=== PATIENT | female | born 1970 | race Caucasian/White ===

== ENCOUNTER 2024-08-29 19:25 | Inpatient (IN) | payer SELFPAY ==
--- OUTSIDE RECORDS SUMMARY | 2024-08-29 19:33 | XMS_ITS | Clinical Summary ---
Author Organization [facility] Address [address] [place] [id number] Care Team Providers Care Precision Grinder External Name Role Phone Unavailable Primary Care Provider Unavailabl e Social History Tobacco Use Types Packs/Day Years Used Date Smoking Tobacco: Never Assessed Comments Unknown Sex and Gender Information Value Date Recorded Sex Assigned at Not on file Legal Sex Female 4:31 PM EDT Gender Identity Not on file Sexual Orientation Not on file Plan of Treatment Not on file
--- OUTSIDE RECORDS SUMMARY | 2024-08-29 19:33 | XMS_ITS | Clinical Summary ---
Author Organization [facility] Address [address] [place] [address] Care Team Providers Care Can Striper Name Role Phone Unavailable Primary Care Provider Unavailabl e Allergies No known active allergies Social History Tobacco Use Types Packs/Day Years Used Date Smoking Tobacco: Never Alcohol Use Standard Drinks/Week Comments No 0 (1 standard drink = 0.6 oz pur e alcohol) Comments No Sex and Gender Information Value Date Recorded Sex Assigned at Not on file Legal Sex Female 6:08 PM EDT Gender Identity Not on file Sexual Orientation Not on file Last Filed Vital Signs Vital Sign Reading Time Taken Comments Blood Pressure 135/59 06/12/2014 10:09 PM EDT Pulse 65 06/12/2014 10:09 PM EDT Temperature 37.6 C (99.6 F) 06/12/2014 6:09 PM EDT Respiratory Rate 16 06/12/2014 10:09 PM EDT Oxygen Saturation 99% 06/12/2014 9:00 PM EDT Inhaled Oxygen Concentration - - Weight 54 kg (119 lb) 06/12/2014 6:09 PM EDT Height 162.6 cm (5' 4 ) 06/12/2014 6:09 PM EDT Body Mass Index 20.43 06/12/2014 6:09 PM EDT Plan of Treatment Not on file Insurance GENERIC OUT OF STATE MEDICAID
[2024-08-29 20:59] VITALS: BP 180/108; PULSE 76; RESP 16; TEMP 37.2; O2SAT 98
[2024-08-29 22:20] VITALS: BMI 19.0
--- NOTE | 2024-08-30 04:10 | PC.ADMIT ---
Ivette is a 54 year old female with history of Affective Bipolar. She arrived on M-5 around 8pm, having transferred from [facility]. Pt presented at [facility] on 08/24/24 with intoxication, via section 12. This was after her ex- called EMT, after she swallowed two bottles of his Nitroglycerin, also pt endorsed having drank mouthwash (unsure about quantity). At the ED patient also stated that she is Bipolar and has been off her [place] for unknown period of time. Pt endorses a history of one suicidal attempt at age 18. She stated that she drank the mouthwash, as she had promised her mother not to drink alcohol. Other medical diagnosis include Anorexia. No known drug or food allergies. She is alert and oriented X4, cooperative with assessment, and kept asking to sign a 3 day notice, which was explained to her, and she signed. She denies SI, HI, no AVH. Ivette's goal is to establish providers, get stabilized and get back on medications. Skin check is unremarkable. Ivette was oriented to the unit and placed on 15 minute safety checks.
--- NOTE | 2024-08-30 08:16 | HO.PM.IMCN ---
History of Present Illness Data of Consult Service Date: 08/30/24 Primary Care Provider: Unknown Physician HPI Reason for consult: Medical H&P 54-year-old female with a history of bipolar disorder, anorexia, acid reflux presented to [facility] intoxicated via section 12. Reportedly she ingested 2 bottles of nitroglycerin and also endorsed drinking mouthwash. Patient was reportedly noncompliant with her medications. On exam patient denies any medical concerns, she does report a history of of an unspecified heart condition, she has had 3 echoes as well as a 30 day event monitor. She reports that it was in the setting of an ME at age 27 due to EtOH use and anorexia. She has not seen a underground mining section foreman recently however she is planning to follow up in [place] when she goes home. Her WBC was within normal limits her potassium was low and replenished. On rechecked within normal limits. Patient has evidence of renal insufficiency, we will need outpatient follow up with PCP. She denies any home medications, denies any medical concerns. Review of Systems Review of Systems: Denies any shortness of breath, chest pain, dizziness, lightheadedness, abdominal pain or discomfort, nausea vomiting or diarrhea PMFSH Social History Household Members: Family Household Members Other:: Mother Housing: House Do you presently have visiting nurse or other home services: No Patient Tobacco Use Status: Never used Tobacco Currently Displaying Signs/Symptoms of Drug Intoxication Withdrawal: No Have you been hit, kicked, punched, or otherwise hurt by someone within the past year? If so, by whom?: No Do you feel safe in your current relationship?: Yes Is there a partner from a previous relationship who is making you feel unsafe now?: No Are you made to feel afraid or neglected: No Advance Directives: No Advance Directives Information Provided: No Advance Directives on File: No Do you have thoughts of harming others: None Do you have a plan to hurt others: No Plan Recently lost weight without trying: No How much weight loss: Not applicable Eating poorly because of decreased appetite: No Nutrition screen score: 0 Nutrition Risks: No Nutritional Risk Patient : No : No Poor oral hygiene: No Meds Allergies Allergy/AdvReac Type Severity Reaction Status Date / Time No Known Allergies Allergy Verified 08/29/24 20:50 Active Medications: Current Medications Acetaminophen (Acetaminophen 325 Mg Tablet) 650 mg PO Q6H PRN PRN Reason: Headache/Pain, Scale 1-10 Al Hydroxide/Mg Hydroxide (Magnesium Hydrox/Alum Hydrox 30 Ml Oral.Susp) 30 ml PO Q6H PRN PRN Reason: Heartburn/Nausea Hydroxyzine HCl (Hydroxyzine Hcl 25 Mg Tablet) 25 mg PO Q6H PRN PRN Reason: mild anxiety [place] Carbonate ([place] Carbonate 300 Mg Capsule) 300 mg PO BID ARTURO Magnesium Hydroxide (Milk Of Magnesia 30 Ml Oral.Susp) 30 ml PO DAILY PRN PRN Reason: Constipation Nicotine Polacrilex (Nicotine Polacrilex 2 Mg Gum) 2 mg BUCCAL Q2H PRN PRN Reason: Nicotine Cravings Olanzapine (Olanzapine 5 Mg Tablet) 5 mg PO BID PRN PRN Reason: agitation Trazodone HCl (Trazodone Hcl 50 Mg Tablet) 50 mg PO BEDTIME MRX1 PRN PRN Reason: Insomnia Trazodone HCl (Trazodone Hcl 50 Mg Tablet) 50 mg PO BEDTIME PRN PRN Reason: Insomnia Home Medications ?Medication ?Instructions ?Recorded ?Confirmed ?Last Taken ?Type hydroxyzine pamoate 25 mg capsule 25 mg PO BID PRN Insomnia 08/29/24 08/29/24 Unknown History lithium carbonate 300 mg capsule 300 mg PO BID 08/29/24 08/29/24 Unknown History trazodone 50 mg tablet 50 mg PO BEDTIME PRN Insomnia 08/29/24 08/29/24 Unknown History Physical Exam Vital Signs and Narrative: Vital Signs: Last Vital Signs Temp 99.0 F 08/29/24 20:59 Pulse 76 08/29/24 20:59 Resp 16 08/29/24 20:59 BP 180/108 H 08/29/24 20:59 Pulse Ox 98 08/29/24 20:59 O2 Del Method Room Air 08/29/24 20:59 BMI result Body Mass Index 19.0 Alert and oriented X3, able to give good history. Anxious, thin Neuro: CN II-X11 intact, no deficits, visual acuity intact EYES: PERRLA, EOM intact ENT: Hearing intact, lips moist Cardiac: S1 S2 RRR, No ectopy Pulmonary: lungs clear to auscultation, No increased WOB. Abdominal: BS active in all 4 quadrants, no guarding or tenderness MSK: Strength 5/5 upper and lower extremities : Deferred Extremities: No edema in lower extremities Psych: mood stable, speech rapid, anxious Skin: Warm and dry, Intact Results Labs 08/30/24 08:13 Assessment and Plan (1) Acid reflux: Status: Acute Plan 54-year-old female with history of bipolar disorder, acid reflux, anorexia, history of EtOH use, presents to [facility] with suicidal ideation, patient reportedly ingested 2 bottles with nitro and ran into the villarreal to . She expressed suicidal and homicidal ideation and not taking her medications. She is admitted to for further care. Bipolar disorder/anorexia/SI/HI/EtOH Treatment per psychiatric team Renal insufficiency We will need follow up with her primary care doctor when she returns to [place] Acid reflux Avoid triggering foods Tums as needed Thank you for allowing me to participate in the care of this patient. Signing off at this time. Please reconsult of any acute concerns or issues arise
[2024-08-30 09:02] LABS: Alanine Aminotransferase 21 U/L (0-31); Albumin Level 4.5 g/dL (3.5-5.0); Alkaline Phosphatase 67 U/L (39-117); Anion Gap 12 (12-20); Aspartate Amino Transferase 26 U/L (5-31); Blood Urea Nitrogen 11 mg/dL (9-16); Calcium 9.3 mg/dL (8.4-10.2); Carbon Dioxide 29 mmol/L (22-29); Chloride 102 mmol/L (96-108); Cholesterol 240 mg/dL (<200); Creatinine Clr Calc Pharmacy 47.3; Estimated Glomerular Filt Rate 54; HDL Cholesterol 91 mg/dL (>40); Potassium 3.5 mmol/L (3.3-5.1); Sodium 139 mmol/L (135-145); Total Protein 7.3 g/dL (6.5-8.0); Triglycerides 96 mg/dL (<150)
[2024-08-30 09:13] LABS: Free T4 (Free Thyroxine) 1.28 ng/dL (0.71-1.85); Hemoglobin A1C 128.1852 umol/L; Thyroid Stimulating Hormone 1.60 uIU/mL (0.32-4.0); Total Hemoglobin (HGBA1C) 4084.4138 umol/L
--- NOTE | 2024-08-30 09:16 | HO.PSYADMNOT ---
HPI Date of Service: 08/30/24 Chief Complaint: OD'd on medication Sources of Information: patient interviewed, chart reviewed and crisis/core team assessment reviewed HPI Subjective Notes: [place] Warning and 3 Day Healthcare Proxy: No Guardianship: No Medical Problems Affecting Mental Status: No Narrative: 54-year-old female with history of bipolar disorder, anxiety, depression, and anorexia nervosa, was a transfer from [facility] on 08/29/2024 in the context of an overdose with 2 bottles of nitroglycerin. On interview with this provider and nursing home social worker, patient notes that on 08/23/2024, before she was brought to [facility], she had an argument with her mother regarding counseling that she wanted to do with her mother. Her mother was not ready for the counseling when the patient wanted counseling last month. However, her mother is now ready but the patient is not. The patient's friend has always been supportive of the patient. Nevertheless, her friend was supportive of her mother regarding going for counseling now. The patient became frustrated and took 2 bottles of nitroglycerin tablet. She did not know the quantity of tablets in the bottles. The medications are prescribed for her ex- whom she is currently visiting. She lives in [place], [place] with her mother. She notes that she took the medications out of frustration not an active suicide. That was why she immediately notify her ex- that she took the medications. Her ex- informed EMS and the police arrived to his home. She notes that when the police arrived, she impulsively ran into the villarreal, but was found. She notes that before the above incident, her mental health was at baseline. She was taking her medications as prescribed but would miss doses or times. She noticed less anger with missed doses. Her last inpatient hospitalization for mental illness was in May 2024, at [facility] in [place]. She was admitted for 10 days for cutting. She was discharged home on lithium, trazodone, and hydroxyzine. Before that, she was not on medication for four years. Her sleep improved during her current visit with her ex , and sleeps 7-9 hours nightly. Sometimes she experiences increased energy than usual, and other times she feels tired. She reports history of excessive alcohol intake since she was 17 years old. In the last 3-5 years, she stopped drinking excessively, and has been drinking a few beers during social gathering. She drinks a bottle of mouthwash 5 nights per week instead of regular alcohol. She denies drugs or nicotine use. She reports moderate anxiety. She denies depression. She denies SI/HI/AH/VH. She is currently on a 3 day and looking forward to be discharged so she can fly to [place], with her ex- for site seeing and other activities as planned. She plans to continue care with her outpatient psychiatrist. She also reports urinary frequency and intermittent suprapubic pain since last night. Patient seen on 08/30/2024 at 11:00. Past Psychiatric History: Bipolar disorder, anxiety, depression, anorexia nervosa h/o multiple PLOC at [place], last was 05/2024 h/o multiple rehab for alcohol use disorder Psych provider: Lianna Benjamin [facility] No therapist Medical Evaluation Reviewed: Yes [facility] Social History: - has close relationship with ex- Disabled d/t mental illness. Last employed at age 21-22 years old No children No siblings Lives with her mom in [place], [place] Dad left when she was 10 Substance History: h/o alcohol use disorder Drinks a bottle of mouthwash every night times 5 days weekly Denies drugs or nicotine use Diagnostics Vital Signs (24Hr): Vital Signs - 24 hr 08/29/24 20:59 Temperature 99.0 F Pulse Rate 76 Respiratory Rate 16 Blood Pressure 180/108 H Pulse Oximetry 98 Oxygen Delivery Method Room Air BMI result Body Mass Index 19.0 Labs 08/30/24 08:13 Labs: Laboratory Results - last 48 hr 08/30/24 08:13 Sodium 139 Potassium 3.5 Chloride 102 Carbon Dioxide 29 Anion Gap 12 BUN 11 Creatinine 1.06 Estim Creat Clear Calc 47.3 Estimated GFR 54 Random Glucose 89 Estimat Average Glucose 97 Hemoglobin A1c % 5.0 Calcium 9.3 Total Bilirubin 0.3 AST 26 ALT 21 Alkaline Phosphatase 67 Total Protein 7.3 Albumin 4.5 Triglycerides 96 Cholesterol 240 H LDL Cholesterol, Calc 130 H HDL Cholesterol 91 TSH 1.60 Free T4 1.28 Meds/Allergies Meds Home Medications ?Medication ?Instructions ?Recorded ?Confirmed ?Type hydroxyzine pamoate 25 mg capsule 25 mg PO BID PRN Insomnia 08/29/24 08/29/24 History lithium carbonate 300 mg capsule 300 mg PO BID 08/29/24 08/29/24 History trazodone 50 mg tablet 50 mg PO BEDTIME PRN Insomnia 08/29/24 08/29/24 History Allergies Allergies Allergy/AdvReac Type Severity Reaction Status Date / Time No Known Allergies Allergy Verified 08/29/24 20:50 Mental Status Exam Mental Status Exam Narrative: Appearance: Casually dressed, adequate hygiene Behavior: Calm and cooperative throughout the interview. Eye contact is appropriate, and there are no signs of psychomotor agitation or retardation Speech: Pressured Thought process: Circumstantial, tangential Thought content: Future oriented no self-harming thoughts Mood: anxious Affect: Constricted SI:denies HI:denies VH/AH:none Delusions: None Insight/judgment: Impaired insight and judgment Memory/cog: Alert, oriented x 4. grossly intact to conversational testing Assessment & Plan Assessment & Plan (1) Bipolar disorder: Status: Acute Code(s): F31.9 - Bipolar disorder, unspecified (2) Anxiety: Status: Acute Code(s): F41.9 - Anxiety disorder, unspecified (3) Lower urinary tract symptoms (LUTS): Status: Acute Code(s): R39.9 - Unspecified symptoms and signs involving the genitourinary system Plan 54-year-old female with history of bipolar disorder, anxiety, depression, and anorexia nervosa, was a transfer from [facility] on 08/29/2024 in the context of an overdose with 2 bottles of nitroglycerin. On interview with this provider and nursing home social worker, patient notes that on 08/23/2024, before she was brought to [facility], she had an argument with her mother regarding counseling that she wanted to do with her mother. Her mother was not ready for the counseling when the patient wanted counseling last month. However, her mother is now ready but the patient is not. The patient's friend has always been supportive of the patient. Nevertheless, her friend was supportive of her mother regarding going for counseling now. The patient became frustrated and took 2 bottles of nitroglycerin tablet. She did not know the quantity of tablets in the bottles. The medications are prescribed for her ex- whom she is currently visiting. She lives in [place], [place] with her mother. She notes that she took the medications out of frustration not an active suicide. That was why she immediately notify her ex- that she took the medications. Her ex- informed EMS and the police arrived to his home. She notes that when the police arrived, she impulsively ran into the villarreal, but was found. She notes that before the above incident, her mental health was at baseline. She was taking her medications as prescribed but would miss doses or times. She noticed less anger with missed doses. Her last inpatient hospitalization for mental illness was in May 2024, at [facility] in [place]. She was admitted for 10 days for cutting. She was discharged home on lithium, trazodone, and hydroxyzine. Before that, she was not on medication for four years. Her sleep improved during her current visit with her ex , and sleeps 7-9 hours nightly. Sometimes she experiences increased energy than usual, and other times she feels tired. She reports history of excessive alcohol intake since she was 17 years old. In the last 3-5 years, she stopped drinking excessively, and has been drinking a few beers during social gathering. She drinks a bottle of mouthwash 5 nights per week instead of regular alcohol. She denies drugs or nicotine use. She reports moderate anxiety. She denies depression. She denies SI/HI/AH/VH. She is currently on a 3 day and looking forward to be discharged so she can fly to [place], with her ex- for site seeing and other activities as planned. She plans to continue care with her outpatient psychiatrist. She also reports urinary frequency and intermittent suprapubic pain since last night. Formulation/Clinical reasoning: Patient is likely experiencing genia. Her speech is pressured. She also endorses alternating periods of increased energy and tiredness. Unsure if she is reliable about being med compliant, especially when she notes less angry with missed doses. She is moderately anxious. No depression. No SI/HI/AH/VH at this time. Will increase lithium to 300 mg in the morning and and 150 mg at bedtime; advised to take as prescribed. Instructed on the risks, benefits, and potential adverse reactions of the medication. Will check lithium level tomorrow. Likely has a UTI with symptoms of urinary frequency and intermittent suprapubic pain. Adequate hydration encouraged. Will check urinalysis/culture and treat if positive for UTI. Continue current treatment regimen. Plan Admit to M5. 3 day 15 minutes checks. Diagnostics as needed. Collateral contact. Continue remainder of regime. Encouraged full milieu. Discharge planning. Gutierrez increased to 300 mg in the morning and 450 mg at bedtime. Patient educated on: diagnosis, medication risk/benefits and therapeutic strategies Reason for continued inpatient stay Substantial Risk for: harm to self and rapid decompensation Statement Statement: I have reviewed the history and physical and performed a pertinent examination on my patient. No changes have occurred unless specified. If the History and Physical was not performed prior to admission, the Hospitalist's service will be consulted for completing the admission physical. Time Spent With Patient Time: Total time managing care of this patient today ____ minutes.
[2024-08-30 20:00] VITALS: BP 159/101; PULSE 86; RESP 16; TEMP 36.7; O2SAT 96
[2024-08-31 08:00] VITALS: BP 155/77; PULSE 70; RESP 15; TEMP 36.7; O2SAT 98
[2024-08-31 08:28] LABS: Lithium 0.44 mmol/L (0.60-1.20)
--- NOTE | 2024-08-31 17:13 | P.PNPSI_ITS ---
Subjective Subjective Date of Service: 08/31/24 Reason For Visit: OD'd on medication Subjective Notes: Conditional Voluntary Healthcare Proxy: No Guardianship: No Medical Problems Affecting Mental Status: No Interim History: Pt preparing for discharge on 09/03. Ex-partner will help her with transport. She reports no need for prescriptions and will make her own appts as she and ex- partner are planning travel post discharge. Discussed her care providers at home, [facility], and their availability to her. No current questions/concerns. Denies SI/HI/AH/VH. No sx of acute psychosis or genia Medication Compliance: Yes Side effects from medications: No Attending Groups: No Review of Systems Acute medical concerns: No Medical Review of Systems: unchanged Review of Systems Review of Systems Denies Mental Status Exam Mental Status Exam Patient Appearance: Appropriate Patient Orientation: Person, Place, Time and Situation Level of Consciousness: Alert Patient Behavior: Talkative Mood Description: Appropriate Affect Description: Appropriate Patient Cognition Impaired: No Ability to Follow Directions: Good Speech Pattern: Spontaneous Speech Memory Description: Episodic Impaired Hallucinations: None Delusions: Not Present Thought Process: Intact and Goal Oriented Thought Content: positive for Intact and positive for Goal Oriented Judgement: Fair Diagnostics Vital Signs (24Hr): Vital Signs - 24 hr 08/30/24 20:00 08/31/24 08:00 Temperature 98.1 F 98.1 F Pulse Rate 86 70 Respiratory Rate 16 15 Blood Pressure 159/101 H 155/77 H Pulse Oximetry 96 98 Oxygen Delivery Method Room Air Room Air BMI result Body Mass Index 19.0 Labs 08/30/24 08:13 Labs: Laboratory Results - last 48 hr 08/30/24 08/31/24 08:13 08:06 Sodium 139 Potassium 3.5 Chloride 102 Carbon Dioxide 29 Anion Gap 12 BUN 11 Creatinine 1.06 Estim Creat Clear Calc 47.3 Estimated GFR 54 Random Glucose 89 Estimat Average Glucose 97 Hemoglobin A1c % 5.0 Calcium 9.3 Total Bilirubin 0.3 AST 26 ALT 21 Alkaline Phosphatase 67 Total Protein 7.3 Albumin 4.5 Triglycerides 96 Cholesterol 240 H LDL Cholesterol, Calc 130 H HDL Cholesterol 91 TSH 1.60 Free T4 1.28 [place] 0.44 L Medications Medications Current Medications Acetaminophen (Acetaminophen 325 Mg Tablet) 650 mg PO Q6H PRN PRN Reason: Headache/Pain, Scale 1-10 Al Hydroxide/Mg Hydroxide (Magnesium Hydrox/Alum Hydrox 30 Ml Oral.Susp) 30 ml PO Q6H PRN PRN Reason: Heartburn/Nausea Calcium Carbonate (Calcium Carbonate 750 Mg Tab.Chew) 750 mg PO Q6H PRN PRN Reason: Heartburn Hydroxyzine HCl (Hydroxyzine Hcl 25 Mg Tablet) 25 mg PO Q6H PRN PRN Reason: mild anxiety Last Admin: 08/31/24 11:54 Dose: 25 mg [place] Carbonate ([place] Carbonate 300 Mg Capsule) 300 mg PO BID [facility] Last Admin: 08/31/24 08:53 Dose: 300 mg [place] Carbonate ([place] Carbonate 300 Mg Tablet) 150 mg PO BEDTIME [facility] Last Admin: 08/30/24 21:05 Dose: 150 mg Magnesium Hydroxide (Milk Of Magnesia 30 Ml Oral.Susp) 30 ml PO DAILY PRN PRN Reason: Constipation Nicotine Polacrilex (Nicotine Polacrilex 2 Mg Gum) 2 mg BUCCAL Q2H PRN PRN Reason: Nicotine Cravings Olanzapine (Olanzapine 5 Mg Tablet) 5 mg PO BID PRN PRN Reason: agitation Trazodone HCl (Trazodone Hcl 50 Mg Tablet) 50 mg PO BEDTIME MRX1 PRN PRN Reason: Insomnia Allergies Allergies Allergy/AdvReac Type Severity Reaction Status Date / Time No Known Allergies Allergy Verified 08/29/24 20:50 Assessment & Plan Assessment & Plan (1) Bipolar disorder: Status: Acute Code(s): F31.9 - Bipolar disorder, unspecified (2) Anxiety: Status: Acute Code(s): F41.9 - Anxiety disorder, unspecified (3) Lower urinary tract symptoms (LUTS): Status: Acute Code(s): R39.9 - Unspecified symptoms and signs involving the genitourinary system Plan 54-year-old female with history of bipolar disorder, anxiety, depression, and anorexia nervosa, was a transfer from [facility] on 08/29/2024 in the context of an overdose with 2 bottles of nitroglycerin. On interview with this provider and social media manager, patient notes that on 08/23/2024, before she was brought to [facility], she had an argument with her mother regarding counseling that she wanted to do with her mother. Her mother was not ready for the counseling when the patient wanted counseling last month. However, her mother is now ready but the patient is not. The patient's friend has always been supportive of the patient. Nevertheless, her friend was supportive of her mother regarding going for counseling now. The patient became frustrated and took 2 bottles of nitroglycerin tablet. She did not know the quantity of tablets in the bottles. The medications are prescribed for her ex- whom she is currently visiting. She lives in [place], [place] with her mother. She notes that she took the medications out of frustration not an active suicide. That was why she immediately notify her ex- that she took the medications. Her ex- informed EMS and the police arrived to his home. She notes that when the police arrived, she impulsively ran into the villarreal, but was found. She notes that before the above incident, her mental health was at baseline. She was taking her medications as prescribed but would miss doses or times. She noticed less anger with missed doses. Her last inpatient hospitalization for mental illness was in May 2024, at [facility] in [place]. She was admitted for 10 days for cutting. She was discharged home on lithium, trazodone, and hydroxyzine. Before that, she was not on medication for four years. Her sleep improved during her current visit with her ex , and sleeps 7-9 hours nightly. Sometimes she experiences increased energy than usual, and other times she feels tired. She reports history of excessive alcohol intake since she was 17 years old. In the last 3-5 years, she stopped drinking excessively, and has been drinking a few beers during social gathering. She drinks a bottle of mouthwash 5 nights per week instead of regular alcohol. She denies drugs or nicotine use. She reports moderate anxiety. She denies depression. She denies SI/HI/AH/VH. She is currently on a 3 day and looking forward to be discharged so she can fly to [place], with her ex- for site seeing and other activities as planned. She plans to continue care with her outpatient psychiatrist. She also reports urinary frequency and intermittent suprapubic pain since last night. Formulation/Clinical reasoning: Patient is likely experiencing genia. Her speech is pressured. She also endorses alternating periods of increased energy and tiredness. Unsure if she is reliable about being med compliant, especially when she notes less angry with missed doses. She is moderately anxious. No depression. No SI/HI/AH/VH at this time. Will increase lithium to 300 mg in the morning and and 150 mg at bedtime; advised to take as prescribed. Instructed on the risks, benefits, and potential adverse reactions of the medication. Will check lithium level tomorrow. Likely has a UTI with symptoms of urinary frequency and intermittent suprapubic pain. Adequate hydration encouraged. Will check urinalysis/culture and treat if positive for UTI. Continue current treatment regimen. Plan Admit to M5. 3 day 15 minutes checks. Diagnostics as needed. Collateral contact. Continue remainder of regime. Encouraged full milieu. Discharge planning. [place] increased to 300 mg in the morning and 450 mg at bedtime. 08/31: Continue tx DC 09/03 Reason for continued inpatient stay Substantial Risk for: rapid decompensation Time Spent With Patient Time: Total time managing care of this patient today ____ minutes.
[2024-08-31 20:00] VITALS: BP 117/71; PULSE 59; RESP 17; TEMP 36.8; O2SAT 100
[2024-09-01 08:00] VITALS: BP 127/68; PULSE 66; RESP 18; O2SAT 97
--- NOTE | 2024-09-01 09:45 | HO.PSYCHPN ---
Subjective Subjective Date of Service: 09/01/24 Reason For Visit: OD'd on medication Interim History: Pt reports she is doing well, she denies SI,HI,AH,VH. There are not sx of genia or psychosis. She does report ongoing UTI like sx. She is in agreement for a BV panel and reports a rash on some parts of her body, she questions bedbugs, however, none were located. She also questions if she is responding to new soap and laundry detergent used while on the unit. Medication Compliance: Yes Side effects from medications: No Attending Groups: Intermittent Review of Systems Acute medical concerns: No Review of Systems Review of Systems UTI like sx. Mental Status Exam Mental Status Exam Patient Appearance: Appropriate Patient Orientation: Person, Place, Time and Situation Level of Consciousness: Alert Patient Behavior: Talkative Mood Description: Appropriate Affect Description: Appropriate Patient Cognition Impaired: No Ability to Follow Directions: Good Speech Pattern: Spontaneous Speech Memory Description: Episodic Impaired Hallucinations: None Delusions: Not Present Thought Process: Intact and Goal Oriented Thought Content: positive for Intact and positive for Goal Oriented Judgement: Fair Diagnostics Vital Signs (24Hr): Vital Signs - 24 hr 08/31/24 20:00 09/01/24 08:00 Temperature 98.2 F Pulse Rate 59 66 Respiratory Rate 17 18 Blood Pressure 117/71 127/68 Pulse Oximetry 100 97 Oxygen Delivery Method Room Air Room Air BMI result Body Mass Index 19.0 Labs 08/30/24 08:13 Labs: Laboratory Results - last 48 hr 08/31/24 08:06 [place] 0.44 L Medications Medications Current Medications Acetaminophen (Acetaminophen 325 Mg Tablet) 650 mg PO Q6H PRN PRN Reason: Headache/Pain, Scale 1-10 Al Hydroxide/Mg Hydroxide (Magnesium Hydrox/Alum Hydrox 30 Ml Oral.Susp) 30 ml PO Q6H PRN PRN Reason: Heartburn/Nausea Calcium Carbonate (Calcium Carbonate 750 Mg Tab.Chew) 750 mg PO Q6H PRN PRN Reason: Heartburn Hydroxyzine HCl (Hydroxyzine Hcl 25 Mg Tablet) 25 mg PO Q6H PRN PRN Reason: mild anxiety Last Admin: 08/31/24 22:00 Dose: 25 mg [place] Carbonate ([place] Carbonate 300 Mg Capsule) 300 mg PO BID [facility] Last Admin: 09/01/24 08:44 Dose: 300 mg [place] Carbonate ([place] Carbon[place] 300 Mg Tablet) 150 mg PO BEDTIME [facility] Last Admin: 08/31/24 20:07 Dose: 150 mg Magn[place] Hydroxide (Milk Of Magnesia 30 Ml Oral.Susp) 30 ml PO DAILY PRN PRN Reason: Constipation Nicotine Polacrilex (Nicotine Polacrilex 2 Mg Gum) 2 mg [place]CCAL Q2H PRN PRN Reason: Nicotine Cravings Olanzapine (Olanzapine 5 Mg Tablet) 5 mg PO BID PRN PRN Reason: agitation Trazodone HCl (Trazodone Hcl 50 Mg Tablet) 50 mg PO BEDTIME MRX1 PRN PRN Reason: Insomnia Allergies Allergies Allergy/AdvReac Type Severity Reaction Status Date / Time No Known Allergies Allergy Verified 08/29/24 20:50 Assessment & Plan Assessment & Plan (1) Bipolar disorder: Status: Acute Code(s): F31.9 - Bipolar disorder, unspecified (2) Anxiety: Status: Acute Code(s): F41.9 - Anxiety disorder, unspecified (3) Lower urinary tract symptoms (LUTS): Status: Resolved Code(s): R39.9 - Unspecified symptoms and signs involving the genitourinary system Plan 54-year-old female with history of bipolar disorder, anxiety, depression, and anorexia nervosa, was a transfer from [facility] on 08/29/2024 in the context of an overdose with 2 bottles of nitroglycerin. On interview with this provider and social media executive, patient notes that on 08/23/2024, before she was brought to [facility], she had an argument with her mother regarding counseling that she wanted to do with her mother. Her mother was not ready for the counseling when the patient wanted counseling last month. However, her mother is now ready but the patient is not. The patient's friend has always been supportive of the patient. Nevertheless, her friend was supportive of her mother regarding going for counseling now. The patient became frustrated and took 2 bottles of nitroglycerin tablet. She did not know the quantity of tablets in the bottles. The medications are prescribed for her ex- whom she is currently visiting. She lives in [place], [place] with her mother. She notes that she took the medications out of frustration not an active suicide. That was why she immediately notify her ex- that she took the medications. Her ex- informed EMS and the police arrived to his home. She notes that when the police arrived, she impulsively ran into the villar[place], but was found. She notes that before the above incident, her mental health was at baseline. She was taking her medications as prescribed but would miss doses or times. She noticed less anger with missed doses. Her last inpatient hospitalization for mental illness was in May 2024, at [facility] in [place]. She was admitted for 10 days for cutting. She was discharged home on lithium, trazodone, and hydroxyzine. Before that, she was not on medication for four years. Her sleep improved during her current visit with her ex , and sleeps 7-9 hours nightly. Sometimes she experiences increased energy than usual, and other times she feels tired. She reports history of excessive alcohol intake since she was 17 years old. In the last 3-5 years, she stopped drinking excessively, and has been drinking a few beers during social gathering. She drinks a bottle of mouthwash 5 nights per week instead of regular alcohol. She denies drugs or nicotine use. She reports moderate anxiety. She denies depression. She denies SI/HI/AH/VH. She is currently on a 3 day and looking forward to be discharged so she can fly to [place], with her ex- for site seeing and other activities as planned. She plans to continue care with her outpatient psychiatrist. She also reports urinary frequency and intermittent suprapubic pain since last night. Formulation/Clinical reasoning: Patient is likely experiencing genia. Her speech is pressured. She also endorses alternating periods of increased energy and tiredness. Unsure if she is reliable about being med compliant, especially when she notes less angry with missed doses. She is moderately anxious. No depression. No SI/HI/AH/VH at this time. Will increase lithium to 300 mg in the morning and and 150 mg at bedtime; advised to take as prescribed. Instructed on the risks, benefits, and potential adverse reactions of the medication. Will check lithium level tomorrow. Likely has a UTI with symptoms of urinary frequency and intermittent suprapubic pain. Adequate hydration encouraged. Will check urinalysis/culture and treat if positive for UTI. Continue current treatment regimen. Plan Admit to M5. 3 day 15 minutes checks. Diagnostics as needed. Collateral contact. Continue remainder of regime. Encouraged full milieu. Discharge planning. [place] increased to 300 mg in the morning and 450 mg at bedtime. 08/31: Continue tx DC 09/03 09/01: BV panel Reason for continued inpatient stay Substantial Risk for: rapid decompensation and med/psych decompensation Time Spent With Patient Time: Total time managing care of this patient today ____ minutes.
[2024-09-01 19:54] VITALS: BP 131/75; PULSE 58; RESP 15; TEMP 36.4; O2SAT 98
[2024-09-02 07:55] VITALS: BP 146/83; PULSE 61; RESP 18; TEMP 36.4; O2SAT 99
[2024-09-02] MEDS: [UNRECOGNIZED DRUG - OTHER] 2 EACH PO (09:34)
[2024-09-02 10:49] LABS: Bacterial Vaginosis PCR POSITIVE (Negative); Candida Group PCR NOT DETECTED (Not Detect); Candida glab krusei PCR NOT DETECTED (Not Detect); Trichomonas vaginalis PCR NOT DETECTED (Not Detect)
[2024-09-02] MEDS: Hydrocortisone 1 % Cream 28.35 GM TUBE 1 APPL TOPICAL ×2 (14:44→19:06)
--- NOTE | 2024-09-02 16:50 | P.PNPSI_ITS ---
Subjective Subjective Date of Service: 09/02/24 Reason For Visit: OD'd on medication Subjective Notes: Conditional Voluntary Interim History: BV culture positive. Pt also continues to report rash-like sx-this appears to be eczema-like. Denies SI,HI,AH, VH. No sx of acute genia or psychosis Planning DC for 09/03. Medication Compliance: Yes Side effects from medications: No Attending Groups: Intermittent Review of Systems as noted Review of Systems Review of Systems Positive BV Eczema sx Mental Status Exam Mental Status Exam Patient Appearance: Appropriate Patient Orientation: Person, Place, Time and Situation Level of Consciousness: Alert Patient Behavior: Talkative Mood Description: Appropriate Affect Description: Appropriate Patient Cognition Impaired: No Ability to Follow Directions: Good Speech Pattern: Spontaneous Speech Memory Description: Episodic Impaired Hallucinations: None Delusions: Not Present Thought Process: Intact and Goal Oriented Thought Content: positive for Intact and positive for Goal Oriented Judgement: Fair Diagnostics Vital Signs (24Hr): Vital Signs - 24 hr 09/01/24 19:54 09/02/24 07:55 Temperature 97.6 F 97.5 F Pulse Rate 58 61 Respiratory Rate 15 18 Blood Pressure 131/75 146/83 H Pulse Oximetry 98 99 Oxygen Delivery Method Room Air BMI result Body Mass Index 19.0 Labs 08/30/24 08:13 Labs: Laboratory Results - last 48 hr 09/01/24 16:15 T. vaginalis (PCR) NOT DETECTED Bact vaginosis (PCR) POSITIVE A C. krusei/glabrata (PCR) NOT DETECTED Bee group (PCR) NOT DETECTED Medications Medications Current Medications Acetaminophen (Acetaminophen 325 Mg Tablet) 650 mg PO Q6H PRN PRN Reason: Headache/Pain, Scale 1-10 Al Hydroxide/Mg Hydroxide (Magnesium Hydrox/Alum Hydrox 30 Ml Oral.Susp) 30 ml PO Q6H PRN PRN Reason: Heartburn/Nausea Calcium Carbonate (Calcium Carbonate 750 Mg Tab.Chew) 750 mg PO Q6H PRN PRN Reason: Heartburn Hydrocortisone (Hydrocortisone 1 % Cream 28.35 Gm Tube) 1 appl TOPICAL BID PRN; Protocol PRN Reason: eczema sx Last Admin: 09/02/24 14:44 Dose: 1 appl Hydroxyzine HCl (Hydroxyzine Hcl 25 Mg Tablet) 25 mg PO Q6H PRN PRN Reason: mild anxiety Last Admin: 09/02/24 14:24 Dose: 25 mg [place] Carbonate ([place] Carbonate 300 Mg Capsule) 300 mg PO BID [facility] Last Admin: 09/02/24 08:44 Dose: 300 mg [place] Carbonate ([place] Carbonate 300 Mg Tablet) 150 mg PO BEDTIME [facility] Last Admin: 09/01/24 21:41 Dose: 150 mg Magnesium Hydroxide (Milk Of Magnesia 30 Ml Oral.Susp) 30 ml PO DAILY PRN PRN Reason: Constipation Metronidazole (Metronidazole 500 Mg Tablet) 500 mg PO Q12H [facility] Stop: 09/10/24 09:00 Last Admin: 09/02/24 12:16 Dose: 500 mg Nicotine Polacrilex (Nicotine Polacrilex 2 Mg Gum) 2 mg BUCCAL Q2H PRN PRN Reason: Nicotine Cravings Pat Own Med (Azo Urinary Pain Relief 2 Tab) 2 tab PO TID PRN PRN Reason: urinary pain Last Admin: 09/02/24 09:34 Dose: 2 tab Olanzapine (Olanzapine 5 Mg Tablet) 5 mg PO BID PRN PRN Reason: agitation Trazodone HCl (Trazodone Hcl 50 Mg Tablet) 50 mg PO BEDTIME MRX1 PRN PRN Reason: Insomnia Allergies Allergies Allergy/AdvReac Type Severity Reaction Status Date / Time No Known Allergies Allergy Verified 08/29/24 20:50 Assessment & Plan Assessment & Plan (1) Bipolar disorder: Status: Acute Code(s): F31.9 - Bipolar disorder, unspecified (2) Anxiety: Status: Acute Code(s): F41.9 - Anxiety disorder, unspecified (3) Lower urinary tract symptoms (LUTS): Status: Resolved Code(s): R39.9 - Unspecified symptoms and signs involving the genitourinary system Plan 54-year-old female with history of bipolar disorder, anxiety, depression, and anorexia nervosa, was a transfer from [facility] on 08/29/2024 in the context of an overdose with 2 bottles of nitroglycerin. On interview with this provider and social media campaign manager, patient notes that on 08/23/2024, before she was brought to [facility], she had an argument with her mother regarding counseling that she wanted to do with her mother. Her mother was not ready for the counseling when the patient wanted counseling last month. However, her mother is now ready but the patient is not. The patient's friend has always been supportive of the patient. Nevertheless, her friend was supportive of her mother regarding going for counseling now. The patient became frustrated and took 2 bottles of nitroglycerin tablet. She did not know the quantity of tablets in the bottles. The medications are prescribed for her ex- whom she is currently visiting. She lives in [place], [place] with her mother. She notes that she took the medications out of frustration not an active suicide. That was why she immediately notify her ex- that she took the medications. Her ex- informed EMS and the police arrived to his home. She notes that when the police arrived, she impulsively ran into the [place], but was found. She notes that before the above incident, her mental health was at baseline. She was taking her medications as prescribed but would miss doses or times. She noticed less anger with missed doses. Her last inpatient hospitalization for mental illness was in May 2024, at [facility] in [place]. She was admitted for 10 days for cutting. She was discharged home on lithium, trazodone, and hydroxyzine. Before that, she was not on medication for four years. Her sleep improved during her current visit with her ex , and sleeps 7-9 hours nightly. Sometimes she experiences increased energy than usual, and other times she feels tired. She reports history of excessive alcohol intake since she was 17 years old. In the last 3-5 years, she stopped drinking excessively, and has been drinking a few beers during social gathering. She drinks a bottle of mouthwash 5 nights per week instead of regular alcohol. She denies drugs or nicotine use. She reports moderate anxiety. She denies depression. She denies SI/HI/AH/VH. She is currently on a 3 day and looking forward to be discharged so she can fly to [place], with her ex- for site seeing and other activities as planned. She plans to continue care with her outpatient psychiatrist. She also reports urinary frequency and intermittent suprapubic pain since last night. Formulation/Clinical reasoning: Patient is likely experiencing genia. Her speech is pressured. She also endorses alternating periods of increased energy and tiredness. Unsure if she is reliable about being med compliant, especially when she notes less angry with missed doses. She is moderately anxious. No depression. No SI/HI/AH/VH at this time. Will increase lithium to 300 mg in the morning and and 150 mg at bedtime; advised to take as prescribed. Instructed on the risks, benefits, and potential adverse reactions of the medication. Will check lithium level tomorrow. Likely has a UTI with symptoms of urinary frequency and intermittent suprapubic pain. Adequate hydration encouraged. Will check urinalysis/culture and treat if positive for UTI. Continue current treatment regimen. Plan Admit to M5. 3 day 15 minutes checks. Diagnostics as needed. Collateral contact. Continue remainder of regime. Encouraged full milieu. Discharge planning. [place] increased to 300 mg in the morning and 450 mg at bedtime. 08/31: Continue tx DC 09/03 09/02: Hydrocortisone cream for skin rash Metronidazole for +BV culture DC 09.03 Reason for continued inpatient stay Substantial Risk for: rapid decompensation Time Spent With Patient Time: Total time managing care of this patient today ____ minutes.
[2024-09-02 20:00] VITALS: BP 162/106; PULSE 69; RESP 15; TEMP 36.5; O2SAT 98
[2024-09-02 22:20] VITALS: BP 156/84; PULSE 70
[2024-09-03 08:00] VITALS: BP 140/90; PULSE 63; RESP 15; TEMP 36.4; O2SAT 99
--- NOTE | 2024-09-03 12:09 | P.DS_ITS ---
DS: Providers Provider Date of Service: 09/03/24 Date of admission: 08/29/24 19:25 Date of discharge: 09/03/24 Primary care physician: Unknown Physician Admitting clinician: Jono Nj Attending physician on admission: Terence Jones Consults: 08/29/24 21:37 Consult to Hospitalist Routine Comment: Consulting Provider: [facility] Reason For Exam: External new admit- H&P Attending physician on discharge: Terence Jones Discharging clinician: Kerry Sanchez DS: Diagnosis Discharge Diagnosis (1) Bipolar disorder: Status: Acute (2) Anxiety: Status: Acute (3) Lower urinary tract symptoms (LUTS): Status: Resolved DS: Medications Discharge Medications Home Medications: Home Medications ?Medication ?Instructions ?Recorded ?Confirmed hydroxyzine pamoate 25 mg capsule 25 mg PO BID PRN Ins omnia 08/29/24 08/29/24 lithium carbonate 300 mg capsule 300 mg PO BID 5 08/29/24 trazodone 50 mg tablet 50 mg PO BEDTIME PRN Insomni a 08/29/24 08/29/24 Previous Rx's ?Medication ?Instructions ?Recorded Azo Urinary Pain Relief 2 tab PO TID PRN ##0 5 hydrocortisone 1 % topical cream 1 appl topical BID [place] eczema sx 09/03/24 #0 grams lithium carbonate 300 mg tablet 150 mg (1/2 x 300 mg) PO BEDTIME 09/03/24 #0 tabs metronidazole 500 mg tablet 500 mg PO Q12H #14 tabs Mental Status Exam Mental Status Exam Patient Appearance: Appropriate Patient Orientation: Person, Place, Time and Situation Level of Consciousness: Alert Patient Behavior: Talkative Mood Description: Appropriate Affect Description: Appropriate Patient Cognition Impaired: No Ability to Follow Directions: Good Speech Pattern: Spontaneous Speech Memory Description: Episodic Impaired Hallucinations: None Delusions: Not Present Thought Process: Intact and Goal Oriented Thought Content: positive for Intact and positive for Goal Oriented Judgement: Fair Data Data Completed and Pending Completed studies during hospitalization [Text1]: 08/30/24 08/31/24 09/01/24 08:13 08:06 16:15 Sodium 139 Potassium 3.5 Chloride 102 Carbon Dioxide 29 Anion Gap 12 BUN 11 Creatinine 1.06 Estim Creat Clear Calc 47.3 Estimated GFR 54 Random Glucose 89 Estimat Average Glucose 97 Hemoglobin A1c % 5.0 Calcium 9.3 Total Bilirubin 0.3 AST 26 ALT 21 Alkaline Phosphatase 67 Total Protein 7.3 Albumin 4.5 Triglycerides 96 Cholesterol 240 H LDL Cholesterol, Calc 130 H HDL Cholesterol 91 TSH 1.60 Free T4 1.28 [place] 0.44 L T. vaginalis (PCR) NOT DETECTED Bact vaginosis (PCR) POSITIVE A C. krusei/glabrata (PCR) NOT DETECTED Bee group (PCR) NOT DETECTED 08/30/24 Unknown Urine clean catch - Clean Catch Midstream Urine Culture - Final DS: Summary Hospital Course Hospital Course: Admission to adult psychiatry for exacerbation of bipolar disorder, anxiety. Medications were evaluated and adjusted. Pt was offered full milieu support to strengthen coping skills. Pt was seen by hospitalist team and medical symptoms were addressed-bacterial vaginosis and eczema sx. Pt will return with her to [place] and will resume her treatment in her home area. Status at Discharge Functional status at discharge: independent ambulation Overall status at discharge: patient is progressing back to baseline Time Spent with Patient Time attestation: Total time managing care of this patient today ____ minutes. Time spent: Less than 30 minutes Discharge Plan Discharge Anticipated Discharge Date/Time: 09/03/24 12:00 Patient Disposition: Home, Self-Care Discharge Diagnosis: Bipolar Disorder Anxiety Referrals: Psychiatry [facility] [Other] - 1 Week Referral Note: Please follow up with your psychiatrist to schedule an appointment when you know when you will be returning to [place]. [facility] [Other] - 1 Week Referral Note: [facility] also offers recovery treatment as well as therapy and anger management. AA Support in [place] [Other] - 1 Week Referral Note: This website offers resources for local meetings. Discharge Medications: New Azo Urinary Neelima 2 tab PO TID PRNQty: 0 0RF metronidazole 500 mg Tablet 500 mg PO Q12H Qty: 14 0RF hydrocortisone 1 % Cream 1 appl topical BID PRN (Reason: eczema sx) Qty: 0 0RF Protocol: Apply to: Apply to: affected areas lithium carbonate 300 mg Tablet 150 mg PO BEDTIME Qty: 0 0RF Continued trazodone 50 mg tablet 50 mg PO BEDTIME PRN (Reason: Insomnia) lithium carbonate 300 mg capsule 300 mg PO BID hydroxyzine pamoate 25 mg capsule 25 mg PO BID PRN (Reason: Insomnia) Discharge Orders: Discharge Order (Routine); Ordered 09/03/24 Ordered By: Kerry Sanchez Diet: Advance to usual diet Activity on Discharge: As tolerated Stand Alone Forms: Patient Portal Discharge page, Community Support Print Language: [place] Care Plan Goals: Mood and Behavioral Stabilization Health Concerns: Mood and Behavioral Stabilization Plan of Treatment: Attend scheduled appointments Take medications as directed Assessment: No SI,HI,AH,VH Three day notice discharge Discharge Date/Time: 09/03/24 11:13
== END 2024-09-03 11:13 | disposition home or self-care (01) | DRG 885 ==
PROVIDERS: Clinical Nurse Specialist Psychiatric/Mental Health, Adult; Nurse Practitioner Family; Nurse Practitioner Psychiatric/Mental Health; Admitting Provider Psychiatry & Neurology Psychiatry; Visit Provider Psychiatry & Neurology Psychiatry
DX: F31.9 Bipolar disorder, unspecified (principal); K21.9 Gastro-esophageal reflux disease without esophagitis; F41.9 Anxiety disorder, unspecified; N28.9 Disorder of kidney and ureter, unspecified; N76.0 Acute vaginitis; Z91.148 Patient's other noncompliance with medication regimen for other reason; Z79.899 Other long term (current) drug therapy
CPT/HCPCS: 36415; 80053; 80061; 80178; 81515; 83036; 84439; 84443; 87086

== ENCOUNTER → 2024-08-29 19:25 | Outpatient (BNV) | payer SELFPAY | PROVIDERS: Admitting Provider Psychiatry & Neurology Psychiatry; Visit Provider Nurse Practitioner Family | DX: K21.9 Gastro-esophageal reflux disease without esophagitis (principal) | CPT/HCPCS: 99221 ==

== ENCOUNTER → 2024-08-29 19:25 | Outpatient (BNV) | payer SELFPAY | PROVIDERS: Admitting Provider Psychiatry & Neurology Psychiatry; Visit Provider Nurse Practitioner Family | DX: F31.4 Bipolar disorder, current episode depressed, severe, without psychotic features (principal); F41.9 Anxiety disorder, unspecified; R39.9 Unspecified symptoms and signs involving the genitourinary system | CPT/HCPCS: 90792; 99231 ==